=== PATIENT | male | born 1960 | race Caucasian/White ===

== ENCOUNTER 2024-10-16 06:47 | Day surgery (SDC) | payer OTHER ==
[~2024-10-16] VITALS: Ht 175.3 cm; Wt 77.2 kg
[~2024-10-16 06:47] MED LIST: SODIUM CHLORIDE 0.9% 1,000 ML ONE
[2024-10-16] MEDS ORDERED: LIDOCAINE 2% 11 ML JELLY TP ONE (06:48)
[2024-10-16] MEDS ORDERED: BENZOCAINE 20% 50 MCG/SPRAY 57 GM TP ONE (06:48)
[2024-10-16] MEDS ORDERED: LIDOCAINE 4% 50 ML SOLUTION TP ONE (06:48)
[2024-10-16] MEDS ORDERED: ALBUTEROL SULFATE 2.5 MG/0.5 ML NEB SOLUTION NEB ONE (06:48)
[2024-10-16] MEDS: SODIUM CHLORIDE 0.9% 1,000 ML IV ONE (07:21)
[2024-10-16 07:46] LABS: GLUCOMETER DEV NAME(LOC) SDS.; GLUCOSE,POINT OF CARE 149 MG/DL (70-110)
[2024-10-16] MEDS ORDERED: FentaNYL CITRATE PF 100 MCG/2 ML VIAL ONE (07:55)
[2024-10-16] MEDS ORDERED: MIDAZOLAM HCL 2 MG/2 ML VIAL ONE (07:55)
[2024-10-16] MEDS ORDERED: AMLO5TAB66 PO (07:57)
[2024-10-16] MEDS ORDERED: ATOR40TA71 PO (07:57)
[2024-10-16] MEDS ORDERED: BACL20TA PO (07:57)
[2024-10-16] MEDS ORDERED: ASPI-1444 PO (07:57)
[2024-10-16] MEDS ORDERED: METO50 PO (07:57)
[2024-10-16] MEDS ORDERED: BUPR200T8 PO (07:57)
[2024-10-16] MEDS ORDERED: ESCI-8 PO (07:57)
[2024-10-16] MEDS ORDERED: CETI10TA58 PO (07:57)
[2024-10-16] MEDS ORDERED: FLUT12AE3 IH (07:57)
[2024-10-16] MEDS ORDERED: ISOS30TA92 PO (07:57)
[2024-10-16] MEDS ORDERED: LORA10TA7 PO (07:57)
[2024-10-16] MEDS ORDERED: METF-446 PO (07:57)
[2024-10-16] MEDS ORDERED: GABA-1404 PO (07:57)
[2024-10-16] MEDS ORDERED: MONT-40 PO (07:57)
[2024-10-16] MEDS ORDERED: LISI5TAB21 PO (07:57)
[2024-10-16] MEDS ORDERED: CHOL200074 PO (07:57)
[2024-10-16] MEDS ORDERED: MOME13HF11 IH (07:57)
[2024-10-16] MEDS ORDERED: FAMO20 PO (07:57)
[2024-10-16] MEDS ORDERED: PANT40TA54 PO (07:57)
[2024-10-16] MEDS ORDERED: ALBU18HF12 IH (07:57)
[2024-10-16] MEDS ORDERED: QUET100T34 PO (07:57)
[2024-10-16] MEDS ORDERED: BUSP10TA23 PO (07:57)
[2024-10-16 09:30] VITALS: PULSE 55; RESP 16; O2SAT 100
== END 2024-10-16 13:05 | disposition home or self-care (01) ==
LOC: SDS 06:47
PROVIDERS: ATTEND Internal Medicine Critical Care Medicine
DX: R05.3 Chronic cough (principal); J38.4 Edema of larynx; B37.0 Candidal stomatitis; E78.00 Pure hypercholesterolemia, unspecified; F41.9 Anxiety disorder, unspecified; K21.9 Gastro-esophageal reflux disease without esophagitis; G47.30 Sleep apnea, unspecified; Z95.5 Presence of coronary angioplasty implant and graft; Z98.890 Other specified postprocedural states; Z72.89 Other problems related to lifestyle; Z79.899 Other long term (current) drug therapy
CPT/HCPCS: 31623; 82962; 87206; 87101; 87220; 87070; 88108; 87015; 87186; 31624; 94640; 71045; J3010; J2250; J2919; J7030; J7613; Z7610